=== PATIENT | female | born 1955 | race Hispanic/Latino ===

== ENCOUNTER → 2023-10-12 | Emergency (ER) | payer OTHER ==
[~2023-10-12] MED LIST: NA CHLORIDE 0.9% 1,000 ML ONE; NA CHLORIDE 0.9% 100 ML ONE; PIPERACIL/TAZO 3.375 GM VIAL IV ONE; POTASSIUM 25 MEQ EFFERV TAB ONE
--- OUTSIDE RECORDS SUMMARY | 2023-10-12 14:34 | XMS REPORT | Continuity of Care Document ---
Author Name Unknown Address [address] [facility] [address] th[address] Address [address] [facility] [address] [place] [address] Care Team Providers Care Restaurant Assistant Manager Name Role Phone Doctor Unassigned, [place] Attending Clinician U Kali Pierce MD Attending Clinician KALI SANCHEZ Attending Clinician Unavailabl e Payers Payer Name Policy Type Policy Number Effective Date Expirati on Date Source Allergies, Adverse Reactions, Alerts Allergy Name Allergy Type Status Severity Reaction(s) Onset Date Inactive Date Treating Clinician Comments Source NO KNOWN ALLERGIE S Drug Class Active [facility] Social History Social Habit Start Date Stop Date Quantity Comments Source Sex Assigned At [facility] Exposure to SARS-CoV-2 (event) Not sure [facility] Tobacco use and exposure 2020-05-21 00:00:00 2020-05-21 00:00:00 Never used [facility] Smoking Status Start Date Stop Date Source Never smoker [facility] Medications Ordered Medication Name Filled Medication Name Start Date Stop Date Current Medication? Ordering Clinician Indication Dosage Frequency Signature (SIG) Comments Components Source naproxen sod/diphenh ydramine (ALEVE PM ORAL) 05-21 20:32: 22 Yes Take by mouth at bedtime. [facility] multivitami n capsule 05-21 20:32: 22 Yes 1{capsu le} Take 1 capsule by mouth. [facility] naproxen sod/diphenh ydramine (ALEVE PM ORAL) 05-21 20:32: 22 Yes Take by mouth at bedtime. [facility] multivitami n capsule 05-21 20:32: 22 Yes 1{capsu le} Take 1 capsule by mouth. [facility] naproxen sod/diphenh ydramine (ALEVE PM ORAL) 05-21 20:32: 22 Yes Take by mouth at bedtime. [facility] multivitami n capsule 05-21 20:32: 22 Yes 1{capsu le} Take 1 capsule by mouth. [facility] naproxen sod/diphenh ydramine (ALEVE PM ORAL) 05-21 20:32: 22 Yes Take by mouth at bedtime. [facility] multivitami n capsule 05-21 20:32: 22 Yes 1{capsu le} Take 1 capsule by mouth. [facility] naproxen sod/diphenh ydramine (ALEVE PM ORAL) 05-21 20:32: 22 Yes Take by mouth at bedtime. [facility] multivitami n capsule 05-21 20:32: 22 Yes 1{capsu le} Take 1 capsule by mouth. [facility] naproxen sod/diphenh ydramine (ALEVE PM ORAL) 05-21 20:32: 22 Yes Take by mouth at bedtime. [facility] multivitami n capsule 05-21 20:32: 22 Yes 1{capsu le} Take 1 capsule by mouth. [facility] naproxen sod/diphenh ydramine (ALEVE PM ORAL) 05-21 20:32: 22 Yes Take by mouth at bedtime. [facility] multivitami n capsule 05-21 20:32: 22 Yes 1{capsu le} Take 1 capsule by mouth. [facility] methylPREDN ISolone (MEDROL, JT,) 4 mg tablets 05-21 00:00: 00 Yes [id number] 9109 84mg Take 21 tablets by mouth SEE-INSTRU CTIONS. follow package directions [facility] methylPREDN ISolone (MEDROL, JT,) 4 mg tablets 05-21 00:00: 00 Yes [id number] 9109 84mg Take 21 tablets by mouth SEE-INSTRU CTIONS. follow package directions [facility] methylPREDN ISolone (MEDROL, JT,) 4 mg tablets 05-21 00:00: 00 Yes [id number] 9109 84mg Take 21 tablets by mouth SEE-INSTRU CTIONS. follow package directions [facility] methylPREDN ISolone (MEDROL, JT,) 4 mg tablets 05-21 00:00: 00 Yes [id number] 9109 84mg Take 21 tablets by mouth SEE-INSTRU CTIONS. follow package directions [facility] methylPREDN ISolone (MEDROL, JT,) 4 mg tablets 05-21 00:00: 00 Yes [id number] 9109 84mg Take 21 tablets by mouth SEE-INSTRU CTIONS. follow package directions [facility] methylPREDN ISolone (MEDROL, JT,) 4 mg tablets 05-21 00:00: 00 Yes [id number] 9109 84mg Take 21 tablets by mouth SEE-INSTRU CTIONS. follow package directions [facility] methylPREDN ISolone (MEDROL, JT,) 4 mg tablets 05-21 00:00: 00 Yes [id number] 9109 84mg Take 21 tablets by mouth SEE-INSTRU CTIONS. follow package directions [facility] albuterol 90 mcg/actuati on inhaler 2018-09 00:00: 00 07-20 05:59 :00 No 2{puff} Inhale 2 Puffs. [facility] albuterol 90 mcg/actuati on inhaler 2018-09 00:00: 00 07-20 05:59 :00 No 2{puff} Inhale 2 Puffs. [facility] albuterol 90 mcg/actuati on inhaler 2018-09 00:00: 00 07-20 05:59 :00 No 2{puff} Inhale 2 Puffs. [facility] albuterol 90 mcg/actuati on inhaler 2018-09 00:00: 00 07-20 05:59 :00 No 2{puff} Inhale 2 Puffs. [facility] Vital Signs Vital Name Observation Time Observation Value Comments S theace Systolic blood pressure 2020-05-21 20:28:00 128 mm[Hg] [place] [facility] Diastolic blood pressure 2020-05-21 20:28:00 84 mm[Hg] [place] [facility] Heart rate 2020-05-21 20:28:00 83 /min [facility] Body height 2020-05-21 20:28:00 162.6 cm [facility] Body weight 2020-05-21 20:28:00 101.606 kg [facility] BMI 2020-05-21 20:28:00 38.45 kg/m2 [facility] Procedures Procedure Date / Time Performed Performing Clinicia n Source REFERRAL- REQUEST/RESPONSE 2020-08-20 06:01:00 Doctor Unassigned, [place] [facility] REFERRAL- REQUEST/RESPONSE 2020-07-17 06:01:00 Doctor Unassigned, [place] [facility] REFERRAL- REQUEST/RESPONSE 2020-06-19 05:01:00 Doctor Unassigned, [place] [facility] REFERRAL- REQUEST/RESPONSE 2020-06-01 05:01:00 Doctor Unassigned, [place] [facility] Encounters Start Date/Time End Date/Time Encounter Type Admission Type Attending [facility] Facility Care Department Encounter ID Source 2020-08-20 00:00:00 2020-08-20 00:00:00 Orders Only Doctor Unassigned, [place] [id number] [facility] 2020-07-19 00:00:00 2020-07-19 00:00:00 Telephone Kali Sanchez [facility] [id number] [facility] 2020-07-17 00:00:00 2020-07-17 00:00:00 Orders Only Doctor Unassigned, [place] [facility] [id number] [facility] 2020-06-19 00:00:00 2020-06-19 00:00:00 Orders Only Doctor Unassigned, [place] [facility] [id number] [facility] 2020-06-01 00:00:00 2020-06-01 00:00:00 Orders Only Doctor Unassigned, [place] [facility] [id number] [facility] 2020-05-21 15:22:19 2020-05-21 16:06:31 Office Visit Kali Sanhcez [facility] [id number] [facility] 2020-05-21 15:15:00 2020-05-21 15:15:00 Outpatient R KALI SANCHEZ [facility] [id number] [facility]
[2023-10-12 15:24] LABS: Protime INR 1.32
[2023-10-12 15:28] LABS: Specific Gravity 1.015 (1.005-1.030); Urine Bacteria 20-50 /HPF (<20); Urine Bilirubin 4+ (Over) (Negative); Urine Blood Negative (Negative); Urine Clarity Extremely Turbid (Clear); Urine Color Dark-Yellow (Yellow); Urine Glucose NEGATIVE (Negative); Urine Mucus 1+ /HPF (None Seen); Urine Protein TRACE (Negative); Urine RBC <5 /HPF (None Seen); Urine Urobilinogen Normal (Normal)
[2023-10-12 15:42] LABS: MCV 89.4 fL (80-100); MPV 8.6 fL (7.6-11.3); Platelets 330 thou/uL (152-406); RBC Red Blood Cell Count 3.91 M/uL (3.86-4.86)
[2023-10-12 15:52] LABS: Albumin 2.4 g/dL (3.4-5.0); Magnesium 2.1 mg/dL (1.6-2.4); Potassium 3.1 mEq/L (3.5-5.1); Protein, Total 7.3 g/dL (6.4-8.2)
[2023-10-12 17:47] LABS: Anisocytosis 1+; Blood Morphology Comment NOTED (NOT SEEN); Platelet Estimate ADEQ; Poikilocytosis 1+
--- NOTE | 2023-10-12 18:10 | RAD REPORT ---
EXAM DESCRIPTION: MRI - Cholangiogram - 10/12/2023 5:18 pm CLINICAL HISTORY: elevated liver enzymes COMPARISON: No comparisons TECHNIQUE: Multiplanar multisequence MRI of the abdomen, obtained without IV contrast, utilizing M CHRO sequences. FINDINGS: Markedly distended gallbladder with numerous gallstones layering dependently near the neck and at the fundus. Severe intrahepatic biliary ductal dilation. Abrupt termination of the dilated biliary radicles at th e level of the proximal common hepatic duct. A segment of the mid common bile duct appears to be flui d opacified, measuring 6 mm in caliber, with smooth tapering distally, without evidence of common sadaf t stones within. There is approximately a segment measuring 1.6 cm of non opacification between the a brupt termination of the common hepatic duct, and this fluid opacified segment. Main pancreatic duct is not dilated. The visualized aspects of the liver, spleen, adrenal glands, pancreas, and kidneys are unremarkable. Visualized aspects of the bowel are unremarkable. No suspicious osseous lesions. Visualized lung bases are unremarkable. IMPRESSION: Severe intrahepatic biliary ductal dilation with abrupt termination of the bile ducts at the level of the proximal common hepatic duct. Short segment (approximately 1.6 cm) of non opacification of the more distal common hepatic duct or j unction with the common bile duct. This may relate to a stricture or focal mass. Segmental fluid opacification of the mid to distal common bile duct, without abnormal dilation, lumin al irregularity, or choledocholithiasis. Markedly distended gallbladder with numerous gallstones within. Distention could relate to stricture at the level of the cystic duct, versus obstruction in the setting of acute cholecystitis. Please cor relate clinically.
--- NOTE | 2023-10-12 19:01 | EDPHYS ---
Physician Documentation [facility] Name: Tatianna Briceño Age: 68 yrs Sex: Female : 1955 Arrival Date: 10/12/2023 Time: 14:32 Bed 12 Private MD: Ela Bose ED Physician Parviz Mary HPI: 10/12 15:00 This 68 yrs old Female presents to ER via Ambulatory with complaints of cp Abnormal Lab Results. 15:00 Patient is a 68-year-old female with past medical history significant for asthma who cp presents to the emergency department after being referred by Dr. Cummings for elevated liver enzymes. Patient has copy of recent blood work done 10-01-2023, copy of report of recent CT abdomen/pelvis and copy of report of recent US of liver/gallbladder. Historical: - Allergies: 14:43 No Known Allergies; ko1 - Home Meds: 14:43 None [Active]; ko1 - PMHx: 14:43 None; ko1 - PSHx: 14:43 None; ko1 - Immunization history:: Adult Immunizations up to date. - Social history:: Smoking status: Patient denies any tobacco usage or history of. Patient uses alcohol, but reports only rare drinking. ROS: 15:05 Constitutional: Negative for body aches, chills, fever, poor PO intake, cp 15:05 Eyes: Negative for pain, redness, visual disturbance, cp 15:05 Cardiovascular: Negative for chest pain, edema, palpitations, 15:05 Respiratory: Negative for cough, shortness of breath, wheezing, 15:05 Abdomen/GI: Negative for abdominal pain, vomiting, diarrhea, constipation, anorexia, black/tarry stool, 15:05 Neuro: Negative for altered mental status, dizziness, headache, syncope, weakness, 15:05 Back: Negative for pain at rest, pain with movement, cp 15:05 : Negative for urinary symptoms, 15:05 All other systems are negative, cp Exam: 15:10 Constitutional: The patient appears in no acute distress, alert, awake, comfortable, cp non-diaphoretic, non-toxic, well developed, well groomed, obese, 15:10 Head/Face: Normocephalic, atraumatic. cp 15:10 Eyes: Periorbital structures: appear normal, Pupils: equal, round, and reactive to light and accomodation, Extraocular movements: intact throughout, Sclera: icterus, is present, Lids and lashes: appear normal, bilaterally, 15:10 ENT: External ear(s): are unremarkable, Nose: is normal, Mouth: Lips: moist, Oral mucosa: pink and intact, moist, Posterior pharynx: Airway: no evidence of obstruction, patent, 15:10 Neck: ROM/movement: is normal, is supple, without pain, no range of motions limitations, no meningismus, no nuchal rigidity, 15:10 Chest/axilla: Inspection: normal, 15:10 Cardiovascular: Rate: normal, Rhythm: regular, Edema: is not appreciated, JVD: is not appreciated, 15:10 Respiratory: the patient does not display signs of respiratory distress, Respirations: normal, no use of accessory muscles, no retractions, labored breathing, is not present, Breath sounds: are clear throughout, no decreased breath sounds, no stridor, no wheezing, 15:10 Abdomen/GI: Inspection: obese Bowel sounds: active, all quadrants, Palpation: abdomen is soft and non-tender, in all quadrants, 15:10 Back: pain, is absent, ROM is normal, 15:10 Skin: Appearance: Color: jaundiced, Temperature: normal temperature, 15:10 Neuro: Orientation: to person, place \T\ time. Mentation: is normal, Cerebellar function: is grossly normal, Motor: moves all fours, strength is normal, Sensation: is normal, Vital Signs: 14:42 BP 147 / 76; Pulse 88; Resp 18; Temp 99.1; Pulse Ox 99% ; ko1 16:09 BP 126 / 68; Pulse 78; Resp 18; Pulse Ox 100% on R/A; mb9 18:31 BP 143 / 70; Pulse 72; Resp 18; Pulse Ox 100% ; Pain 0/10; mb9 18:53 Weight 92.99 kg; ap3 19:44 BP 135 / 81; Pulse 80; Resp 18; Pulse Ox 100% on R/A; mb9 18:31 Pain Scale: Adult mb9 MDM: 14:49 Patient medically screened. [facility] 16:00 Differential Diagnosis sepsis, liver failure, cholecystitis, biliary carcinoma, cp choledocholithiasis. 18:15 Data reviewed: vital signs, nurses notes, lab test result(s), radiologic studies, MRI. cp ED course: left msg for a consult on voicemail for DR Garrison. 19:09 ED course: consult with DR Garrison concerning results of labs, MRI. Recommends transfer cp for higher level care. After speaking with patient, prefers transfer to [facility]. 20:35 Management of patient was discussed with the following: Hospitalist: DR Matamoros \T\[facility] will accept patient as transfer after discussion. 10/12 14:50 Order name: CBC with Diff; Complete Time: 18:00 10/12 16:02 Interpretation: Normal except: HCT 35.0; RDW 15.7. cp 10/12 14:50 Order name: CMP; Complete Time: 16:02 10/12 16:03 Interpretation: Normal except: NA 134; K 3.1; CRE 1.05; GFR 58; AST 220; ALT 227; ALK cp 1511; BILIT 18.0; ALB 2.4; GLOB 4.9; A/G 0.5. 10/12 14:50 Order name: Lipase; Complete Time: 16:02 cp 10/12 14:50 Order name: Urinalysis w/ reflexes; Complete Time: 15:44 cp 10/12 15:45 Interpretation: Normal except: [facility] Extremely Turbid; UBILI 4+ (Over); UPROT TRACE; cp UESTR 75; UBACT 20-50; SQEPI 20-50. 10/12 14:50 Order name: PT-INR; Complete Time: 15:44 cp 10/12 18:00 Interpretation: Reviewed. 10/12 14:50 Order name: Ptt, Activated; Complete Time: 15:44 cp 10/12 14:50 Order name: AMMONIA; Complete Time: 15:44 cp 10/12 15:45 Interpretation: Reviewed. cp 10/12 14:50 Order name: Magnesium; Complete Time: 16:02 cp 10/12 17:47 Order name: Manual Differential; Complete Time: 18:00 EDMS 10/12 18:00 Interpretation: Reviewed. cp 10/12 18:13 Order name: Blood Culture Adult (2) cp 10/12 18:13 Order name: Lactate w/ 2H reflex if indic.; Complete Time: 20:18 cp 10/12 16:13 Order name: Cholangiogram; Complete Time: 18:11 EDMS 10/12 18:13 Interpretation: Report reviewed. cp 10/12 14:50 Order name: IV Saline Lock; Complete Time: 15:07 cp 10/12 14:50 Order name: Labs collected and sent; Complete Time: 15:07 cp 10/12 18:48 Order name: NPO; Complete Time: 18:48 cp 10/12 19:20 Order name: Labs - recollect needed: lactate; Complete Time: 19:43 kb Administered Medications: 18:31 Drug: NS 0.9% IV 1000 ml IV at 1000 ml/hr Per protocol; 1000 mL bolus Route: IV; Rate: mb9 1000 ml/hr; Site: right antecubital; 19:43 Follow up: Response: No adverse reaction; IV Status: Completed infusion mb9 18:42 Drug: Piperacillin-Tazobactam IVPB 3.375 grams IVPB once over 60 mins; (mix in NS 100 mb9 mL) Route: IVPB; Infused Over: 60 mins; Site: right antecubital; 19:43 Follow up: Response: No adverse reaction mb9 19:43 Follow up: Response: No adverse reaction; IV Status: Completed infusion mb9 21:03 Drug: Potassium PO Effervescent Tablet 50 mEq PO once; dissolve in 4 ounces of water or as6 juice Route: PO; Disposition Summary: 10/12/23 19:00 Transfer Ordered Notes: Transfer Location: [facility] cp Reason: Higher level of care cp Condition: Stable cp Problem: new cp Symptoms: have improved cp Accepting Physician: DR Nikole Matamoros(10/12/23 21:18) jb4 Diagnosis - Calculus of gallbladder and bile duct with acute cholecystitis with obstruction cp Forms: - Medication Reconciliation Form cp - SBAR form cp Signatures: Dispatcher [employer] EDMS Shae Marina, ENROLLED AGENT-C ENROLLED AGENT-Ckb Parviz Mary MD MD cha Page, Corey, PA PA cp Dandy Rosario, RN RN jb4 Salvador Werner RN RN as6 Viviana Abad RN RN ko1 Klarissa Pimentel RN RN mb9 Corrections: (The following items were deleted from the chart) 14:47 14:47 This 68 yrs old Female presents to ER via Ambulatory with complaints of cp Abnormal Lab Results. cp 20:23 19:00 Doctor cp cp 21:18 20:23 DR Nikole Matamoros cp jb4 10/13 15:36 02 15:00 Patient is a 68-year-old female with past medical history significant for cp asthma who presents to the emergency department after being referred by Dr. Cummings for elevated liver enzymes. cp
--- NOTE | 2023-10-12 19:01 | ER ---
Nurse's Notes [facility] Name: Tatianna Briceño Age: 68 yrs Sex: Female : 1955 Arrival Date: 10/12/2023 Time: 14:32 Bed 12 Private MD: Ela Bose Diagnosis: Calculus of gallbladder and bile duct with acute cholecystitis with obstruction Presentation: 10/12 14:42 Chief complaint: Patient states: Dr Cummings sent her over due to abnormal labs. ko1 Coronavirus screen: At this time, the client does not indicate any symptoms associated with coronavirus-19. Ebola Screen: No symptoms or risks identified at this time. Initial Sepsis Screen: Does the patient meet any 2 criteria? No. Patient's initial sepsis screen is negative. Does the patient have a suspected source of infection? No. Patient's initial sepsis screen is negative. Risk Assessment: Do you want to hurt yourself or someone else? Patient reports no desire to harm self or others. Onset of symptoms is unknown. 14:42 Method Of Arrival: Ambulatory ko1 14:42 Acuity: LUPILLO 3 ko1 Triage Assessment: 14:43 General: Appears in no apparent distress. Behavior is calm, cooperative, appropriate ko1 for age. Pain: Denies pain. Historical: - Allergies: 14:43 No Known Allergies; ko1 - Home Meds: 14:43 None [Active]; ko1 - PMHx: 14:43 None; ko1 - PSHx: 14:43 None; ko1 - Immunization history:: Adult Immunizations up to date. - Social history:: Smoking status: Patient denies any tobacco usage or history of. Patient uses alcohol, but reports only rare drinking. Screenin:06 [facility] ED Fall Risk Assessment (Adult) History of falling in the last 3 months, mb9 including since admission No falls in past 3 months (0 pts) Confusion or Disorientation No (0 pts) Intoxicated or Sedated No (0 pts) Impaired Gait No (0 pts) Mobility Assist Device Used No (0 pt) Altered Elimination No (0 pt) Score/Fall Risk Level 0 - 2 = Low Risk Oriented to surroundings, Maintained a safe environment, Educated pt \T\ family on fall prevention, incl call for assistance when getting out of bed. Abuse screen: Denies threats or abuse. Nutritional screening: No deficits noted. Tuberculosis screening: No symptoms or risk factors identified. Assessment: 15:08 General: Appears in no apparent distress. Behavior is calm, cooperative, Reports as6 fatigue for. Pain: Denies pain. EENT: Sclera/Cornea jaundiced . Derm: Skin is jaundiced. 15:10 Neuro: Pope Agitation-Sedation Scale (RASS): 0 - Alert and Calm Level of mb9 Consciousness is awake, alert, obeys commands, Oriented to person, place, time, situation, Appropriate for age. Cardiovascular: Patient's skin is warm and dry. Respiratory: Airway is patent Respiratory effort is even, unlabored, Respiratory pattern is regular, symmetrical. GI: Abdomen is round non-distended. : Urine is tea colored. Musculoskeletal: Range of motion: intact in all extremities. 16:30 Reassessment: No changes from previously documented assessment. Patient and/or family mb9 updated on plan of care and expected duration. Pain level reassessed. Patient is alert, oriented x 3, equal unlabored respirations, skin warm/dry/pink. 16:33 Reassessment: pt taken to MRI via wheelchair. mb9 17:37 Reassessment: No changes from previously documented assessment. Patient and/or family mb9 updated on plan of care and expected duration. Pain level reassessed. Patient is alert, oriented x 3, equal unlabored respirations, skin warm/dry/pink. 18:35 Reassessment: No changes from previously documented assessment. Patient and/or family mb9 updated on plan of care and expected duration. Pain level reassessed. Patient is alert, oriented x 3, equal unlabored respirations, skin warm/dry/pink. 19:44 Reassessment: No changes from previously documented assessment. Patient and/or family mb9 updated on plan of care and expected duration. Pain level reassessed. Patient is alert, oriented x 3, equal unlabored respirations, skin warm/dry/pink. 20:52 Reassessment: REPORT TO [facility] [id number], TRANSPORT PENDING. bp 21:18 Reassessment: Report given to EMS. jb4 Vital Signs: 14:42 BP 147 / 76; Pulse 88; Resp 18; Temp 99.1; Pulse Ox 99% ; ko1 16:09 BP 126 / 68; Pulse 78; Resp 18; Pulse Ox 100% on R/A; mb9 18:31 BP 143 / 70; Pulse 72; Resp 18; Pulse Ox 100% ; Pain 0/10; mb9 18:53 Weight 92.99 kg; ap3 19:44 BP 135 / 81; Pulse 80; Resp 18; Pulse Ox 100% on R/A; mb9 18:31 Pain Scale: Adult mb9 ED Course: 14:34 Patient arrived in ED. mr 14:35 Ela Bose is Private Physician. mr 14:35 Parviz John PA is PHCP. cp 14:36 Parviz Mary MD is Attending Physician. cp 14:43 Triage completed. ko1 14:43 Arm band placed on right wrist. Patient placed in an exam room, on a stretcher, on ko1 pulse oximetry, Patient notified of wait time. 15:05 Placed in gown. Bed in low position. Call light in reach. Side rails up X 1. Client mb9 placed on continuous cardiac and pulse oximetry monitoring. NIBP monitoring applied. 15:06 No provider procedures requiring assistance completed. mb9 15:08 Lipase Sent. as6 15:08 CMP Sent. as6 15:08 CBC with Diff Sent. as6 15:08 PT-INR Sent. as6 15:08 Ptt, Activated Sent. as6 15:08 AMMONIA Sent. as6 15:08 Magnesium Sent. as6 15:10 Klarissa Pimentel, JORDAN is Primary Nurse. mb9 17:20 Cholangiogram In Process Unspecified. EDMS 18:31 Blood Culture Adult (2) Sent. mb9 18:32 Inserted saline lock: 20 gauge in left antecubital area, using aseptic technique. mb9 18:57 initiated transfer with scott at [facility]. kmf 20:24 pt accepted to [facility] by Saturnino Spencer. pt will go to room [address] [place] [address]. Number kmf for nurse to nurse report [phone]. [facility]. admin approval given by isidro henry \T\ 2023. 20:25 Primary Nurse role handed off by Klarissa Pimentel, JORDAN as6 20:33 Ramiro Stover, RN is Primary Nurse. bp 20:52 Patient transferred, IV remains in place. bp Administered Medications: 18:31 Drug: NS 0.9% IV 1000 ml IV at 1000 ml/hr Per protocol; 1000 mL bolus Route: IV; Rate: mb9 1000 ml/hr; Site: right antecubital; 19:43 Follow up: Response: No adverse reaction; IV Status: Completed infusion mb9 18:42 Drug: Piperacillin-Tazobactam IVPB 3.375 grams IVPB once over 60 mins; (mix in NS 100 mb9 mL) Route: IVPB; Infused Over: 60 mins; Site: right antecubital; 19:43 Follow up: Response: No adverse reaction mb9 19:43 Follow up: Response: No adverse reaction; IV Status: Completed infusion mb9 21:03 Drug: Potassium PO Effervescent Tablet 50 mEq PO once; dissolve in 4 ounces of water or as6 juice Route: PO; Medication: 15:06 VIS not applicable for this client. mb9 Outcome: 19:00 ER care complete, transfer ordered by . cp 20:52 Transferred by ground EMS to [facility], Transfer form bp completed. 20:52 Condition: stable 20:52 Instructed on the need for transfer, 21:18 Patient left the ED. jb4 Signatures: Dispatcher [employer] EDMS Klarissa Agarwal, Marcelino Reg mr Parviz John, JENNIFER PA cp Dandy Rosario RN RN jb4 Ramiro Stover RN RN bp Prokisch, Amanda, RN RN ap3 Salvador Werner RN RN as6 Viviana Abad RN RN ko1 Breneman, Mary Beth RN RN valentín9 Ebony Reilly [facility]: (The following items were deleted from the chart) 15:38 15:10 : No signs and/or symptoms were reported regarding the genitourinary system. [id number]
[2023-10-13 14:29] VITALS: BP 135/81; TEMP 99.1; O2SAT 100
== END ==
LOC: ER 14:32
DX: K80.63 Calculus of gallbladder and bile duct with acute cholecystitis with obstruction (principal)
CPT/HCPCS: 87040 ×2; 85025; 81001; 36415; 82140; 83735; 85610; 83605; 85730; 83690; 80053; 74181; J2543; J7030